=== PATIENT | male | born 1940 | race Caucasian/White ===

== ENCOUNTER 2024-08-12 13:48 | Inpatient (IN) | payer MEDICARE, BC ==
[~2024-08-12] VITALS: Ht 180.3 cm; Wt 90.7 kg
[2024-08-12 15:13] VITALS: BP 145/75; TEMP 98
[2024-08-12 15:57] VITALS: BP 145/75; TEMP 98
[2024-08-16 11:16] VITALS: BP 145/75; TEMP 98
[2024-08-16 16:03] VITALS: BP 127/79; TEMP 98.1; O2SAT 98
[2024-08-16 16:05] VITALS: BP 127/79; TEMP 98.1
[2024-08-16] MEDS ORDERED: FURO20TA4 PO (17:44)
[2024-08-16] MEDS ORDERED: ALLO100T PO (17:44)
[2024-08-16] MEDS ORDERED: CLOP75TA33 PO (17:44)
[2024-08-16] MEDS ORDERED: BRIM5DRO5 EACHEYE (17:45)
[2024-08-16] MEDS ORDERED: ACID1TAB12 PO (17:53)
[2024-08-16] MEDS ORDERED: ACET325T53 PO (17:53)
[2024-08-16] MEDS ORDERED: ATOR40TA PO (17:54)
[2024-08-16] MEDS ORDERED: APIX2.5T PO (17:54)
[2024-08-16] MEDS ORDERED: CEFA1FRO IV (17:55)
[2024-08-16] MEDS ORDERED: CHOL100045 PO (17:56)
[2024-08-16] MEDS ORDERED: LATA2.5D15 EACHEYE (18:01)
[2024-08-16] MEDS ORDERED: HYDR-4209 PO (18:01)
[2024-08-16] MEDS ORDERED: LIDO30AD10 TP (18:03)
[2024-08-16] MEDS ORDERED: LOSA100T31 PO (18:03)
[2024-08-16] MEDS ORDERED: MAG30ORA PO (18:04)
[2024-08-16] MEDS ORDERED: METO-356 PO (18:05)
[2024-08-16] MEDS ORDERED: MAGN400O6 PO (18:05)
[2024-08-16] MEDS ORDERED: ONDA4SYR IV (18:06)
[2024-08-16] MEDS ORDERED: TIMO5DRO18 EACHEYE (18:14)
[2024-08-16] MEDS ORDERED: Z GUARD TOP (18:20)
[2024-08-16] MEDS ORDERED: ZOLP5TAB8 PO (18:21)
[2024-08-16 18:59] VITALS: BP 127/79; TEMP 98.1; O2SAT 98
[2024-08-16] MEDS ORDERED: ZOLPIDEM 5 MG TABLET PO PRN (20:00)
[2024-08-16] MEDS: CEFAZOLIN 1 G in IV DEXTROSE 5% 50 ML IV SCH (20:00)
[2024-08-16] MEDS ORDERED: HYDROCODONE/APAP 5-325MG TABLET PO PRN (20:00)
[2024-08-16] MEDS ORDERED: MAGNESIUM HYDROXIDE 30 ML LIQUID UDC PO PRN (20:00)
[2024-08-16 20:19] VITALS: BP 141/80; TEMP 98.3; O2SAT 98
[2024-08-16] MEDS: ACIDOPHILUS/BULGARICUS CHEW TAB PO SCH (20:52)
[2024-08-16] MEDS: ATORVASTATIN 40 MG TABLET PO SCH (20:52)
[2024-08-16] MEDS: METOPROLOL SUCCINATE XL 25 MG TAB.SR.24H PO SCH (20:52)
[2024-08-16] MEDS: APIXABAN 2.5 MG TABLET PO SCH (20:53)
[2024-08-16] MEDS: BRIMONIDINE 0.2% OPHT DROP 10 ML BOTTLE EACHEYE SCH (21:03)
[2024-08-16] MEDS: TIMOLOL MALEATE 0.5% OPHT DROP 5 ML BOTTLE EACHEYE SCH (21:04)
[2024-08-16] MEDS ORDERED: CEFAZOLIN 1 G in IV DEXTROSE 5% 50 ML IV SCH (22:00)
[2024-08-17] MEDS: PANTOPRAZOLE SODIUM 40 MG TABLET.DR PO SCH (06:20)
[2024-08-17] MEDS: ACETAMINOPHEN 325 MG TABLET PO PRN (06:26)
[2024-08-17 06:46] LABS: BASOPHILS % (AUTO) 0.5 % (0.0-2.0); EOSINOPHILS # (AUTO) 0.2 K/uL (0.0-0.7); EOSINOPHILS % (AUTO) 2.2 % (0.0-7.0); HEMATOCRIT 35.7 % (36.7-47.1); HEMOGLOBIN 12.1 g/dL (12.5-16.3); LYMPHOCYTES # (AUTO) 1.1 K/uL (0.8-4.8); LYMPHOCYTES % (AUTO) 11.1 % (20.5-51.5); MEAN CORPUSCULAR HGB CONC 34 g/dL (32.5-36.3); MEAN CORPUSCULAR VOLUME 90.9 fL (73.0-96.2); MONOCYTES # (AUTO) 0.8 K/uL (0.1-1.30); MONOCYTES % (AUTO) 8.2 % (0.0-11.0); NEUTROPHILS # (AUTO) 7.6 K/uL (1.8-8.9); PLATELET COUNT (AUTO) 384 K/uL (152-348); RED BLOOD CELL COUNT(AUTO) 3.92 MIL/uL (4.06-5.63); RED CELL DISTRIBUTION WIDTH 14.8 % (12.1-16.2); WHITE BLOOD COUNT (AUTO) 9.7 K/uL (3.6-10.2)
[2024-08-17 06:54] LABS: DIFFERENTIAL COMMENT 1
[2024-08-17 07:22] LABS: IRON, SERUM 22 ug/dL (50-175)
[2024-08-17 08:02] LABS: ALANINE AMINOTRANSFERASE 23 U/L (16-63); ALKALINE PHOSPHATASE 137 U/L (50-136); ASPARTATE AMINOTRANSFERASE 34 U/L (15-37); BILIRUBIN,TOTAL 0.6 mg/dL (0.2-1.0); CALCIUM 8.5 mg/dL (8.5-10.1); CARBON DIOXIDE 27 mmol/L (21-32); CHLORIDE 100 mmol/L (98-107); CHOLESTEROL 93 mg/dL (<200); CREATININE 1.2 mg/dL (0.6-1.3); GLUCOSE 107 mg/dL (74-106); HDL CHOLESTEROL 32 mg/dL (40-60); NT-PRO BNP 556 pg/mL (0-125); PHOSPHOROUS 3.1 mg/dL (2.5-4.9); POTASSIUM 3.5 mmol/L (3.5-5.1); SODIUM SERUM 135 mmol/L (136-145); TOTAL PROTEIN, SERUM 6.3 g/dL (6.4-8.2); TRIGLYCERIDES 52 MG/DL (30-150); UREA NITROGEN, BLOOD 22 mg/dL (7-18); URIC ACID 5.1 mg/dL (3.5-7.2)
[2024-08-17 08:33] LABS: THYROID STIMULATING HORMONE 3.538 mIU/mL (0.358-3.740)
[2024-08-17] MEDS ORDERED: LIDOCAINE 5% PATCH TD SCH (09:00)
[2024-08-17] MEDS: FUROSEMIDE 20 MG TABLET PO SCH (09:09)
[2024-08-17] MEDS: LOSARTAN POTASSIUM 50 MG TABLET PO SCH (09:09)
[2024-08-17] MEDS: ALLOPURINOL 100 MG TABLET PO SCH (09:10)
[2024-08-17] MEDS: CLOPIDOGREL 75 MG TABLET PO SCH (09:10)
[2024-08-17] MEDS: LIDOCAINE 5% PATCH TD SCH (09:10)
[2024-08-17] MEDS ORDERED: BIMA2.5D5 EACHEYE (09:51)
[2024-08-17] MEDS ORDERED: diphenhydrAMINE 25 MG CAP PO PRN (13:00)
[2024-08-17] MEDS ORDERED: CEFAZOLIN 1 G in IV DEXTROSE 5% 50 ML IV SCH (14:00)
[2024-08-17] MEDS: levoFLOXacin 500 MG/D5W 500 MG in PREMIXED 1 EACH IV SCH (17:35)
[2024-08-17 20:00] VITALS: BP 119/64; TEMP 98; O2SAT 96
[2024-08-17] MEDS: BIMATOPROST 0.01% EACHEYE SCH (20:05)
[2024-08-17] MEDS: [UNRECOGNIZED DRUG - OTHER] EACHEYE SCH (20:05)
[2024-08-17] MEDS: TIMOLOL 0.5% EACHEYE SCH (20:05)
[2024-08-17] MEDS: [UNRECOGNIZED DRUG - OTHER] EACHEYE SCH (20:05)
[2024-08-17] MEDS: BRIMONIDINE EACHEYE SCH (20:05)
[2024-08-17] MEDS ORDERED: BRIMONIDINE 0.2% OPHT DROP 10 ML BOTTLE EACHEYE SCH (21:00)
[2024-08-17] MEDS ORDERED: TIMOLOL MALEATE 0.5% OPHT DROP 5 ML BOTTLE EACHEYE SCH (21:00)
[2024-08-17] MEDS ORDERED: LATANOPROST OPHT DROP 2.5 ML BOTTLE EACHEYE SCH (21:00)
[2024-08-18 05:00] VITALS: BP 120/68; TEMP 98.2; O2SAT 97
[2024-08-18 07:35] LABS: CALCIUM 8.4 mg/dL (8.5-10.1); CARBON DIOXIDE 27 mmol/L (21-32); CHLORIDE 101 mmol/L (98-107); CREATININE 1.2 mg/dL (0.6-1.3); GLUCOSE 109 mg/dL (74-106); POTASSIUM 3.7 mmol/L (3.5-5.1); SODIUM SERUM 135 mmol/L (136-145); UREA NITROGEN, BLOOD 27 mg/dL (7-18)
[2024-08-18] MEDS: ALLOPURINOL 100 MG TABLET PO SCH (09:04)
[2024-08-18] MEDS: [UNRECOGNIZED DRUG - OTHER] PO SCH (12:07)
[2024-08-18] MEDS: CLOPIDOGREL 75 MG PO SCH (12:07)
[2024-08-18] MEDS: TRAMADOL HCL 50 MG TABLET PO PRN (16:32)
[2024-08-18 20:04] VITALS: BP 104/52; TEMP 97.7; O2SAT 98
[2024-08-19 06:46] VITALS: BP 121/59; TEMP 98.4; O2SAT 98
[2024-08-19 07:48] VITALS: BP 133/52; TEMP 97.5; O2SAT 99
[2024-08-19] MEDS: TRIAMCINOLONE ACET 0.1% OINT 15 GM TUBE TOP PRN (13:21)
[2024-08-19 15:44] VITALS: BP 124/57; TEMP 97.2; O2SAT 96
[2024-08-19 20:20] VITALS: BP 115/60; TEMP 98.2; O2SAT 96
[2024-08-20 06:43] VITALS: BP 110/62; TEMP 98.3; O2SAT 96
[2024-08-20 08:00] VITALS: BP 138/63; TEMP 97.2; O2SAT 96
[2024-08-20 16:00] VITALS: BP 123/65; TEMP 98.1; O2SAT 96
[2024-08-20] MEDS ORDERED: methylPREDNISolone 1 PACK TAB.DS.PK [4MG TAB] PO ONE (17:00)
[2024-08-20 20:00] VITALS: BP 128/62; TEMP 98.4; O2SAT 97
[2024-08-21] MEDS: methylPREDNISolone 4 MG TABLET PO ONE ×4 (06:32→21:07)
[2024-08-21 07:00] VITALS: BP 142/68; TEMP 97.8; O2SAT 95
[2024-08-21 07:58] VITALS: BP 140/66; TEMP 97.4; O2SAT 97
[2024-08-21] MEDS: ALLOPURINOL 100 MG TABLET PO SCH (09:24)
[2024-08-21 16:00] VITALS: BP 108/57; TEMP 97.6; O2SAT 97
[2024-08-21] MEDS ORDERED: BIMATOPROST 0.01% EACHEYE SCH (18:07)
[2024-08-21] MEDS ORDERED: [UNRECOGNIZED DRUG - OTHER] EACHEYE SCH (18:07)
[2024-08-21 20:32] VITALS: BP 124/51; TEMP 97.8; O2SAT 98
[2024-08-21] MEDS: TEMAZEPAM 15 MG CAPSULE PO PRN (21:05)
[2024-08-21] MEDS: BIMATOPROST 0.01% EACHEYE SCH (21:45)
[2024-08-21] MEDS: [UNRECOGNIZED DRUG - OTHER] EACHEYE SCH (21:45)
[2024-08-22 06:29] VITALS: BP 130/66; TEMP 97.2; O2SAT 98
[2024-08-22 08:08] VITALS: BP 146/67; TEMP 97.9; O2SAT 97
[2024-08-22] MEDS: methylPREDNISolone 4 MG TABLET PO ONE ×4 (08:30→20:34)
[2024-08-22 15:59] VITALS: BP 100/56; TEMP 97.7; O2SAT 98
[2024-08-22 20:04] VITALS: BP 119/56; TEMP 97.4; O2SAT 98
[2024-08-23 06:00] VITALS: BP 156/69; TEMP 97.4; O2SAT 98
[2024-08-23] MEDS: methylPREDNISolone 4 MG TABLET PO ONE ×2 (06:32→12:52)
[2024-08-23 08:25] VITALS: BP 137/60; TEMP 98; O2SAT 98
[2024-08-23 16:51] VITALS: BP 116/62; TEMP 98.1; O2SAT 98
[2024-08-23] MEDS ORDERED: methylPREDNISolone 4 MG TABLET PO ONE ×2 (17:00→21:00)
[2024-08-23] MEDS: TRIAMCINOLONE ACET 0.1% CREAM 15 GM TUBE TOP SCH (17:08)
[2024-08-24] MEDS ORDERED: methylPREDNISolone 4 MG TABLET PO ONE ×3 (07:30→21:00)
[2024-08-25] MEDS ORDERED: methylPREDNISolone 4 MG TABLET PO ONE ×2 (07:30→21:00)
[2024-08-26] MEDS ORDERED: methylPREDNISolone 4 MG TABLET PO ONE (07:30)
== END 2024-08-23 17:25 | disposition home health service (06) | DRG 602 ==
PROVIDERS: ADMIT Physical Medicine & Rehabilitation Pain Medicine; ATTEND Physical Medicine & Rehabilitation Pain Medicine
DX: L03.115 Cellulitis of right lower limb (principal); E43 Unspecified severe protein-calorie malnutrition; N17.0 Acute kidney failure with tubular necrosis; E87.20 Acidosis, unspecified; I50.32 Chronic diastolic (congestive) heart failure; D68.59 Other primary thrombophilia; E87.1 Hypo-osmolality and hyponatremia; R53.1 Weakness; D64.9 Anemia, unspecified; I11.0 Hypertensive heart disease with heart failure; I73.9 Peripheral vascular disease, unspecified; I87.2 Venous insufficiency (chronic) (peripheral); I25.10 Atherosclerotic heart disease of native coronary artery without angina pectoris; M89.8X9 Other specified disorders of bone, unspecified site; Z85.46 Personal history of malignant neoplasm of prostate; Z90.79 Acquired absence of other genital organ(s); Z88.2 Allergy status to sulfonamides; Z95.1 Presence of aortocoronary bypass graft; G47.00 Insomnia, unspecified; M19.90 Unspecified osteoarthritis, unspecified site; N40.0 Benign prostatic hyperplasia without lower urinary tract symptoms; Z95.5 Presence of coronary angioplasty implant and graft; Z88.1 Allergy status to other antibiotic agents; R21 Rash and other nonspecific skin eruption
CPT/HCPCS: 36415; 83550; 83735; 84100; 84443; 84484; 84550; 85025; 85610; 86140; 97535-GO-CO; A4663; J0690; J1956; J7040; J7509; J8499